=== PATIENT | male | born 1975 | race African-American/Black ===

== ENCOUNTER 2016-10-07 10:20 | Emergency (ER) | payer BC, OTHER ==
[2016-10-07] MEDS ORDERED: DIPH/PERTUSS(ACELL)/TETANUS VAC/PF 0.5 ML SYR (>=10YO) IM ONE (11:35)
[2016-10-07] MEDS ORDERED: IBUPROFEN 600 MG TABLET ONE (11:35)
== END 2016-10-07 11:40 | disposition home or self-care (01) ==
LOC: ER 10:20
DX: S80.211A Abrasion, right knee, initial encounter (principal); V43.52XA Car driver injured in collision with other type car in traffic accident, initial encounter; Z23 Encounter for immunization; I10 Essential (primary) hypertension
CPT/HCPCS: 90471; 99283

== ENCOUNTER 2017-02-02 09:56 | Emergency (ER) | payer OTHER, BC ==
--- NOTE | 2017-02-02 10:03 | ER Document Report ---
ED Hand/Wrist Injury - General Stated Complaint: RIGHT HAND LACERATION Time Seen by Provider: 02/02/17 10:02 Mode of Arrival: Ambulatory Information source: Patient Notes: 42-year-old male cut the dorsal aspect of his right hand on metal tape [place] Tetanus shot 1 year ago. - Related Data Allergies/Adverse Reactions: No Known Allergies Allergy (Unverified 06/07/11 10:02) Past Medical History - General Information source: Patient - Social History Smoking Status: Never Smoker Frequency of alcohol use: None Drug Abuse: None Lives with: Spouse/Significant other Family History: Reviewed & Not Pertinent - Past Medical History Cardiac Medical History: Reports: Hx Hypertension Surgical Hx: Negative - Immunizations Hx Diphtheria, Pertussis, Tetanus Vaccination: No Review of Systems - Review of Systems Constitutional: No symptoms reported EENT: No symptoms reported Cardiovascular: No symptoms reported Respiratory: No symptoms reported Gastrointestinal: No symptoms reported Genitourinary: No symptoms reported Male Genitourinary: No symptoms reported Musculoskeletal: No symptoms reported Skin: See HPI Hematologic/Lymphatic: No symptoms reported Neurological/Psychological: No symptoms reported Physical Exam - Vital signs Vitals: Temp Pulse Resp BP Pulse Ox 97.8 F 106 H 18 195/120 H 96 02/02/17 10:02 02/02/17 10:02 02/02/17 10:02 02/02/17 10:02 02/02/17 10:02 Interpretation: Normal - General General appearance: Appears well, Alert In distress: None - HEENT Head: Normocephalic, Atraumatic Eyes: Normal Pupils: PERRL Neck: Supple - Cardiovascular Murmur: No - Back Back: Normal, Nontender - Extremities General upper extremity: Normal inspection, Nontender, Normal color, Normal ROM , Normal temperature General lower extremity: Normal inspection, Nontender, Normal color, Normal ROM , Normal temperature, Normal weight bearing. No: Emre's sign - Neurological Neuro grossly intact: Yes Cognition: Normal Orientation: AAOx4 Kirsty Coma Scale Eye Opening: Spontaneous Kirsty Coma Scale Verbal: Oriented Kirsty Coma Scale Motor: Obeys Commands Henderson Coma Scale Total: 15 Speech: Normal Motor strength normal: LUE, RUE, LLE, RLE Sensory: Normal - Psychological Associated symptoms: Normal affect, Normal mood - Skin Skin Temperature: Warm Skin Moisture: Dry Skin Color: Normal Skin irregularity: Laceration - 4 cm Location of irregularity: Extremities - Dorsal right hand distal 3-5 MT area- horozontal Irregularity with: Tenderness Course - Vital Signs Vital signs: Temp Pulse Resp BP Pulse Ox 97.8 F 106 H 18 195/120 H 96 02/02/17 10:02 02/02/17 10:02 02/02/17 10:02 02/02/17 10:02 02/02/17 10:02 Procedures - Laceration/Wound Repair Right Hand Time completed: 11:24 Wound length (cm): 4 Wound's Depth, Shape: Superficial, Linear - horozontal Laceration pre-procedure: Other - surgiscrub Volume Anesthetic (mLs): 5 Wound explored: Clean Irrigated w/ Saline (mLs): 100 - does not go through all the sub q tissue, no tendons exposed Wound Repaired With: Sutures Suture Size/Type: 5:0, Prolene Number of Sutures: 6 - vertical mattress Post-procedure NV exam normal: Yes Complications: No Discharge - Discharge Clinical Impression: right dorsal hand laceration, Hypertension Condition: Good Disposition: HOME, SELF-CARE Instructions: Antibiotic Ointment Protection ([facility]), Laceration Care ([facility]) Additional Instructions: go home and take your hypertensive medications sutures out in 9 days to er any concerns, signs of infection keep clean and dry Please complete the patient satisfaction survey if you get one, and return it.. If you do not receive a survey, then you can go to the [facility] website, [email or web address] and place your comments about your very good care. Thank you very much. It was a pleasure being your medical provider today. Prescriptions: Azilsartan Med/Chlorthalidone [Edarbyclor 40-25 mg Tablet] 1 tab PO DAILY #30 tab Metoprolol Succinate [Toprol Xl] 100 mg PO DAILY #30 tab.sr.24h Forms: Return to Work
[2017-02-02] MEDS ORDERED: LIDOCAINE 1% INJ-PF (10 MG/ML) 30 ML SDV INJ ONE (10:10)
[2017-02-02 11:22] VITALS: BP 203/125
== END 2017-02-02 11:23 | disposition home or self-care (01) ==
LOC: ER 09:56
PROC: 0HQFXZZ Repair Right Hand Skin, External Approach (ICD-10-PCS; principal; 2017-02-02)
DX: S61.411A Laceration without foreign body of right hand, initial encounter (principal); W45.8XXA Other foreign body or object entering through skin, initial encounter; Y92.139 Unspecified place military base as the place of occurrence of the external cause; Y99.0 Civilian activity done for income or pay; I10 Essential (primary) hypertension
CPT/HCPCS: 99282; 12002; J3490